=== PATIENT | female | born 1995 | race American Indian/Alaskan Native ===

== ENCOUNTER 2017-10-11 15:07 | Emergency (ER) | payer OTHER ==
[2017-10-11 15:22] VITALS: BP 100/64
[2017-10-11 17:35] LABS: Bacteria,Urine 1+ /HPF (Negative); Bilirubin,Urine NEG (Negative); Blood,Urine SM (Negative); Color,Urine Yellow (Yellow); Mucus,Urine FEW /HPF; Nitrite,Urine POS (Negative); Protein,Urine <15 mg/dL mg/dL (Negative); Urobilinogen,Urine < 2.0 mg/dL (<2.0)
== END 2017-10-12 00:30 | disposition left against medical advice (07) ==
LOC: ED 15:07
DX: N39.0 Urinary tract infection, site not specified (principal); Z53.21 Procedure and treatment not carried out due to patient leaving prior to being seen by health care provider
CPT/HCPCS: 81001

== ENCOUNTER 2018-04-29 07:03 | Emergency (ER) | payer MEDICAID ==
[2018-04-29 07:34] VITALS: BP 120/73
[2018-04-29 08:20] LABS: Bilirubin,Urine NEG (Negative); Blood,Urine NEG (Negative); Color,Urine Yellow (Yellow); Mucus,Urine FEW /HPF; Protein,Urine <15 mg/dL mg/dL (Negative); Urobilinogen,Urine < 2.0 mg/dL (<2.0)
[2018-04-29 08:21] LABS: HCG Qualitative,Urine Negative (Negative)
--- NOTE | 2018-04-29 08:22 | Emergency Department Report ---
ED Female HPI - General Chief complaint: Urogenital-Female Stated complaint: POSSIBLE UTI Time Seen by Provider: 04/29/18 08:13 Source: patient Mode of arrival: Ambulatory Limitations: No Limitations - History of Present Illness Initial comments: This is a 21-year-old -[place] female presents with dysuria and vaginal discharge for 2-3 weeks. Patient states she think this is a urinary tract infection that she has been exposed to STDs recently. She has not taken anything for symptom relief [id number]. States vaginal discharge is white with a foul odor. Denies abdominal pain or low back pain, frequency, urgency, fever, hematuria, and nausea or vomiting. MD Complaint: vaginal discharge, dysuria, possible STD Onset/Timin -: week(s) Severity: mild Severity scale (0 -10): 2 Quality: burning Consistency: intermittent Improves with: none Worsens with: urination Are you Now?: No Last Menstrual Period: 04/14/18 EDC: 01/19/19 Associated Symptoms: vaginal discharge. denies: vaginal bleeding, abdominal pain, nausea/vomiting, fever/chills, headaches, loss of appetite, dysuria, hematuria, rash, seizure, shortness of breath, syncope, weakness - Related Data Sexually active: Yes : 0 Para: 0 A: 0 Previous Rx's Medication Instructions Recorded Last Taken Type metroNIDAZOLE [Flagyl] 500 mg PO Q12HR #14 tab 08/03/15 Unknown Rx Fluconazole [Diflucan TAB] 150 mg PO ONCE #1 tablet 07/06/16 Unknown Rx Sulfamethoxazole/Trimethoprim 1 each PO BID #14 tablet 07/06/16 Unknown Rx [Bactrim DS TAB] Nitrofurantoin [place]/M-Cryst 100 mg PO Q12HR #10 capsule 09/11/16 Unknown Rx [Macrobid CAP] Fluconazole [Diflucan] 150 mg PO ONCE #1 tablet 04/29/18 Unknown Rx metroNIDAZOLE [Metronidazole] 500 mg PO BID 7 Days #14 tablet 04/29/18 Unknown Rx Allergies Allergy/AdvReac Type Severity Reaction Status Date / Time No Known Allergies Allergy Unverified 08/03/15 12:39 ED Review of Systems ROS: Stated complaint: POSSIBLE UTI Other details as noted in HPI Constitutional: denies: chills, fever Respiratory: denies: cough, shortness of breath, wheezing Cardiovascular: denies: chest pain, palpitations Gastrointestinal: denies: abdominal pain, nausea, diarrhea Genitourinary: dysuria, discharge (thick white foul-smelling discharge). denies : urgency, frequency, hematuria, abnormal menses, dyspareunia Musculoskeletal: denies: back pain, joint swelling, arthralgia Skin: denies: rash, lesions Neurological: denies: headache, weakness, paresthesias Psychiatric: denies: anxiety, depression ED Past Medical Hx - Past Medical History Previous Medical History?: No - Surgical History Past Surgical History?: No - Social History Smoking Status: Never Smoker Substance Use Type: None - Medications Home Medications: Home Medications Medication Instructions Recorded Confirmed Last Taken Type metroNIDAZOLE [Flagyl] 500 mg PO Q12HR #14 tab 08/03/15 Unknown Rx Fluconazole [Diflucan TAB] 150 mg PO ONCE #1 tablet 07/06/16 Unknown Rx Sulfamethoxazole/Trimethoprim 1 each PO BID #14 tablet 07/06/16 Unknown Rx [Bactrim DS TAB] Nitrofurantoin [place]/M-Cryst 100 mg PO Q12HR #10 capsule 09/11/16 Unknown Rx [Macrobid CAP] Fluconazole [Diflucan] 150 mg PO ONCE #1 tablet 04/29/18 Unknown Rx metroNIDAZOLE [Metronidazole] 500 mg PO BID 7 Days #14 tablet 04/29/18 Unknown Rx ED Physical Exam - General Limitations: No Limitations - Cardiovascular Cardiovascular Exam: Present: regular rate, normal rhythm, normal heart sounds. Absent: systolic murmur, diastolic murmur, rubs, gallop - GI/Abdominal GI/Abdominal exam: Present: soft, normal bowel sounds. Absent: distended, tenderness, guarding, rebound, rigid, organomegaly, mass - External exam: Present: normal external exam. Absent: erythema, swelling, lesions, lacerations, ecchymosis, bleeding Speculum exam: Present: vaginal discharge (thin white malodorous discharge). Absent: erythema, cervical discharge, vaginal bleeding, foreign body, tissue, laceration Bi-manual exam: Present: normal bi-manual exam - Neurological Exam Neurological exam: Present: alert, oriented X3 - Psychiatric Psychiatric exam: Present: normal affect, normal mood - Skin Skin exam: Present: warm, dry, intact, normal color. Absent: rash ED Course Vital Signs 04/29/18 07:32 Temperature 97.8 F Pulse Rate 72 Respiratory 16 Rate Blood Pressure 120/73 O2 Sat by Pulse 98 Oximetry ED Medical Decision Making - Medical Decision Making This is a 22-year-old -[place] female who presents with vaginal discharge and dysuria for 3 weeks. Patient was examined by me. Vitals are stable and in no acute distress. I obtained urinalysis, urine hCG, wet prep and GC via pelvic exam. Elevated wbc's on urinalysis, negative hCG, GC pending , wet prep positive clue cells, negative Trichomonas and yeast. Start metronidazole 500 mg by mouth twice a day 7 days. Patient requests treatment for post antibiotic yeast infection. Start fluconazole 150 mg by mouth 1. Patient should take antibiotic at completion of metronidazole if symptoms of yeast infection. Discharged home in stable condition. Discussed prevention options. F/U with PCP or Health Department. Critical care attestation.: If time is entered above; I have spent that time in minutes in the direct care of this critically ill patient, excluding procedure time. ED Disposition Clinical Impression: Bacterial vaginitis, Vaginal discharge, Antibiotic-induced yeast infection Disposition: DC- TO HOME OR SELFCARE Is pt being admited?: No Does the pt Need Aspirin: No Condition: Stable Instructions: Bacterial Vaginosis (ED) Additional Instructions: Avoid drinking alcohol while taking antibiotics and for 24 hours after completion. Continue safe sexual intercourse. Follow up with Primary Care Provider or health department. Prescriptions: Fluconazole [Diflucan] 150 mg PO ONCE #1 tablet metroNIDAZOLE [Metronidazole] 500 mg PO BID 7 Days #14 tablet Referrals: [facility] [Outside] - 3-5 Days [facility] [Outside] - 3-5 Days [facility] [Outside] - 3-5 Days Forms: STI Treatment and Prevention, Work/School Release Form(ED) Time of Disposition: 09:07 Print Language: VIET[place]
== END 2018-04-29 09:38 | disposition home or self-care (01) ==
LOC: ED 07:03
DX: N76.0 Acute vaginitis (principal)
CPT/HCPCS: 81001; 81025; 87210; 87591; 99283